=== PATIENT | female | born 1995 ===

== ENCOUNTER 2025-01-05 11:17 | Inpatient (IN) | payer OTHER ==
[~2025-01-05] VITALS: Wt 126.4 kg
[2025-01-05] MEDS ORDERED: METF500C PO (16:51)
[2025-01-05] MEDS ORDERED: LITH300C PO (16:52)
[2025-01-05] MEDS ORDERED: PRENATAL TABLE1 EAC2 PO (16:53)
[2025-01-05] MEDS ORDERED: Polyethylene Glycol 3350 17 gm PO PRN (16:55)
[2025-01-05] MEDS ORDERED: Ondansetron 4 MG SoluTab MM PRN (16:55)
[2025-01-05] MEDS ORDERED: Inderal 20 mg T20 MG PO (16:55)
[2025-01-05] MEDS ORDERED: LORazepam 2 MG/ML 1ML Injection IM PRN (16:55)
[2025-01-05] MEDS ORDERED: PROP60 PO ×2 (16:56→16:57)
[2025-01-05] MEDS ORDERED: QUET100 PO (16:58)
[2025-01-05] MEDS ORDERED: QUET300 PO ×2 (17:00→17:06)
[2025-01-05] MEDS ORDERED: Haloperidol Lactate Inj. 5 MG/ML Injection IM PRN (17:00)
[2025-01-05] MEDS ORDERED: DiphenhydrAMINE HCl 50 MG/ML 1ML Vial IM PRN (17:00)
[2025-01-05] MEDS ORDERED: Aluminum Hydroxide 320MG/5ML 473 ML PO PRN (17:00)
--- NOTE | 2025-01-05 18:09 | NUR ---
SHIFT SUMMARY NO ACUTE EVENTS. PT ARRIVED ON UNIT, PLEASANT AND COOPERATIVE. STATED THAT SHE COULD "FEEL" HERSELF BECOMING "MANIC" AND EXPERIENCING "DEPRESSIVE" SYMPTOMS AND BELIEVED SHE WAS GOING TO HAVE A MIXED EPISODE. PT STATES SHE HAS BEEN BINGE EATING, IMPULSIVE, WHILE ALSO EXPERIENCING OVERSLEEPING, INTERMITTENT, FLEETING SUICIDAL IDEATION IN THE PAST MONTH (NOT IN THE PAST 48 HOURS PER PT). AT THIS TIME DENIES SI, HI, AVTH. IN DAY ROOM INTERACTING W/ PEERS AT THIS TIME
[2025-01-05 19:51] VITALS: BP 135/85
--- NOTE | 2025-01-06 04:17 | NUR ---
SHIFT SUMMARY: PT A/O X4. PLEASANT AND COOPERATIVE. IN GROUP ROOM THE START OF SHIFT INTERACTING WITH OTHERS. PT DENIES SI, HI AND AVH. DOES STATE SHE IS DEPRESSED AND OVERWHELMED WITH HER FEELINGS. PT DID NOT GO INTO STRESSORS AT THIS TIME, BECAUSE SHE THOUGHT SHE WOULD CRY. FEELS THAT SHE MAY BE INPULSIVE INTO HER FEELINGS THAT SHE COULD HAVE HARMED HERSELF. PT STATES SHE JUST GOT HERE AND FEELS BETTER ALREADY. MED COMPLIANT. PT HAD SNACK AND RETURNED BACK TO THE GROUP ROOM WITH OTHERS AFTERWARD UNTIL BED TIME. PT STATES THAT SHE TAKES SEROQUEL INSTEAD OF TRAZODONE, BUT WILL TRY IT TONIGHT AND WILL TALK TO THE DR IN THE MORNING ON HER WISHES TO CHANGE MED. PT SLEPT THROUGH THE NIGHT. PT SNORES LOUDLY AND DEEPLY. WILL CONTINUE TO MONITOR Q 15 MINS FOR SAFETY AND WELLNESS.
[2025-01-06] MEDS ORDERED: MetFORMIN HCl 500 mg PO SCH (08:00)
[2025-01-06 08:25] LABS: BASOPHILS ABSOLUTE AUTO 0.04 K/mm3 (0.00-0.23); BASOPHILS PERCENT AUTO 1 % (0-2); EOSINOPHILS ABSOLUTE AUTO 0.17 K/mm3 (0.00-0.68); EOSINOPHILS PERCENT AUTO 2 % (0-6); Hematocrit 38.8 % (33.0-51.0); Hemoglobin 13.2 g/dL (11.5-16.0); IMMATURE GRAN ABSOLUTE AUTO 0.03 K/mm3 (0.00-0.10); IMMATURE GRAN PERCENT AUTO 0 % (0-1); LYMPHOCYTES ABSOLUTE AUTO 3.01 K/mm3 (0.84-5.20); LYMPHOCYTES PERCENT AUTO 34 % (21-46); MONOCYTES ABSOLUTE AUTO 0.55 K/mm3 (0.16-1.47); MONOCYTES PERCENT AUTO 6 % (4-13); Mean Corpuscular HGB Conc 34.0 g/dL (31.5-36.5); Mean Corpuscular Volume 92 fL (80-100); NEUTROPHILS ABSOLUTE AUTO 5.05 K/mm3 (1.96-9.15); NEUTROPHILS PERCENT AUTO 57 % (41-73); NRBC ABSOLUTE 0.00 K/mm3 (0.00-0.02); NRBC Auto 0.0 /100 WBC (0.0-0.2); Platelet Count 367 K/mm3 (150-400); RDW Coefficient Variation 12.9 % (11.7-14.2); RDW Standard Deviation 42.9 fL (35.1-46.3)
[2025-01-06 08:58] LABS: Lithium 0.68 mmol/L (0.60-1.20)
[2025-01-06 09:00] VITALS: BP 130/86
[2025-01-06] MEDS ORDERED: Multivitamins 1 Tab PO SCH (09:00)
[2025-01-06] MEDS ORDERED: Prenatal Vit/FE Fumarate/FA 1 Tab PO SCH (09:00)
[2025-01-06 09:06] LABS: Alanine Aminotransfer (ALT/SGP 30 U/L (12-78); Albumin, Blood 3.6 g/dL (3.4-5.0); Albumin/Globulin Ratio 0.9 (0.8-1.8); Anion Gap 8 mmol/L (3-11); Aspartate Aminotrans (AST/SGOT 14 U/L (12-37); Bilirubin, Total 0.3 mg/dL (0.1-1.0); Blood Urea Nitrogen 10 mg/dL (8-24); CHOL/HDL RATIO 4.6; CO2, Blood 25 mmol/L (21-32); Calcium, Blood 8.9 mg/dL (8.5-10.1); Chloride, Blood 105 mmol/L (98-108); Cholesterol 232 mg/dL (50-200); Creatinine, Blood 0.86 mg/dL (0.40-1.00); Globulin, Blood 4.1 g/dL (2.2-4.0); Glucose, Blood 104 mg/dL (70-99); HDL Cholesterol 50 mg/dL (>39); LDL/HDL RATIO 3.0; Low Density Lipoprotein Chol 150 mg/dL (0-110); Potassium, Blood 4.1 mmol/L (3.5-5.5); Sodium, Blood 134 mmol/L (136-145); Thyroid Stimulating Hormone 1.050 uIU/mL (0.360-4.800); Total Protein, Blood 7.7 g/dL (6.4-8.2); Triglycerides 162 mg/dL (30-140); Very Low Density Lipoprot Chol 32 mg/dL (6-28)
--- NOTE | 2025-01-06 12:29 | NUR ---
MASTER TREATMENT PLAN MASTER TREATMENT PLAN REVIEWED W/ PT AND PT "SIGNED" ELECTRONICALLY
--- NOTE | 2025-01-06 12:52 | NUR ---
PATIENT APPROACHES NURSING DESK AFTER LUNCH REQUESTING TO SPEAK WITH A THERAPIST ABOUT HER EATING DISORDER. PATIENT IS TEARY AND APPEARS DISTRAUGHT. SHE STATES THAT SHE DIDN'T GET WHAT SHE ORDERED ON HER MENU AND THIS TRIGGERED HER TO REMEMBER THE TIME SHE SPENT IN TREATMENT FOR HER EATING DISORDER, AND SHE WAS NOT GIVEN A CHOICE OF ANYTHING. PATIENT STATES THAT SHE IS A BINGE EATER AT THIS TIME, BUT IN THE PAST WAS BINGING AND PURGING. SHE STATES "I THOUGHT I WAS OVER THIS, BUT CLEARLY I AM NOT". A DIETARY CONSULT WAS PLACED IN THE COMPUTER AND THE PATIENT IS AWARE THAT WE DO NOT HAVE A EATING DISORDER THERAPIST ON SITE, BUT THE NURSES ARE AVAILABLE ANYTIME TO HELP HER WORK THROUGH HER FEELINGS.
--- NOTE | 2025-01-06 16:33 | NUR ---
SHIFT SUMMARY: PLEASE ALSO SEE EARLIER NURSING NOTE ENTERED THIS SHIFT REGARDING AN EATING DISORDER. PATIENT WAS TEARY THIS AFTERNOON WHEN CONCERNS SURFACED ABOUT HER PAST EATING DISORDER, BUT OVERALL SHE HAD A GOOD DAY, ACTIVELY JOINING HER PEERS IN THE DAY AREA, WATCHING TV AND VISITING. PATIENT TAKES MEDICATIONS PRESCRIBED. DENIES SIDE EFFECTS. PATIENT AFFECT APPEARS HAPPY MOST OF THE TIME. SHE DENIES THAT SHE WANTS TO END HER LIFE BUT DOES HAVE OCCASIONAL FLEETING THOUGHTS OF MAYBE NOT WANTING TO BE HERE. SHE DENIES HALLUCINATIONS. PATIENT EATS HER MEALS BUT IS TRIGGERED BY FOOD TRAYS THAT DO NOT REFLECT WHAT SHE REQUESTED. PATIENT IS NOW RESTING IN HER ROOM WITH NO FURTHER CONCERNS AT THIS TIME.
[2025-01-06 19:23] VITALS: BP 133/84
--- NOTE | 2025-01-07 04:56 | NUR ---
SHIFT SUMMARY: PT A/O X4. PLEASANT AND COOPERATIVE. PT IN DINING ROOM AT THE BEGINNING OF THE SHIFT HAVING DINNER. NO FOOD TRIGGERS WITH MEAL TONIGHT. DENIES SI, HI, AND AVTH, PT INTERVIEW TODAY WITH HAPPY MOOD AND DISCUSSSED HER FOOD TRIGGERS. PT WAS IN A FOOD/NUTRITION THERAPY LAST OCTOBER SHE SAID. PT PARTICIPATES IN GROUP, SNACK AND GROUP ROOM WITH PEERS AND IS LAUGHING. COMPLAINED OF CONSTIPATION AND OFFERED MIRALAX. SHE SAID THAT THE REASON SHE CAN'T HAVE A BM IS THAT SHE HAS A ROOMMATE AND THE RESTROOM IS UNCOMFORTABLE. OFFERED HER A RESTROOM OF MORE PRIVACY AND PT HAD A BM. SHE SAID SHE FELT BETTER IMMEDIATELY. PT HAS SLEPT THROUGH THE NIGHT SINCE GOING TO BED AT 2200. WILL CONTINUE TO MONITOR.
[2025-01-07 09:02] VITALS: BP 113/63
--- NOTE | 2025-01-07 17:18 | NUR ---
SHIFT SUMMARY PT AxOx4. PLEASANT AND COOPERATIVE WITH CARE. PT DENIES SI/HI AND AVTH THIS SHIFT AT AM ASSESSMENT. SHE REPORTED HER MOOD WAS "GOOD, BUT ANXIOUS." SHE REQUESTED TO SPEAK WITH A THERAPIST REGARDING THE CAUSE OF HER ANXIETY. PT WAS FOUND FOLLOWING HER TREATMENT PLAN THIS SHIFT INCLUDING TAKING MEDICATIONS PRESCRIBED, ATTENDING ALL [facility] THERAPY GROUPS AND MINGLING APPROPRIATELY WITH STAFF/PEERS. PROVIDER ORDERED MEDICATION CHANGES TO BE STARTED TONIGHT. CURRENT PLAN IS ESTIMATED FOR DC THIS TUESDAY OR TUESDAY, DEPENDING ON PROGRESS. PT AGREEABLE TO PLAN. SHE IS CURRENTLY IN THE GROUP ROOM WATCHING TV WITH PEERS. DENIED ANY NEEDS AT THIS TIME.
[2025-01-07 20:15] VITALS: BP 132/94
--- NOTE | 2025-01-08 05:30 | NUR ---
SHIFT SUMMARY: Patient is Alert and oriented times four. She gets along with both staff and her peers in the milieu. Participates in all activities. She was given one vistaril at 2014 for anxiety 10/18 which she said brought it down to a -08/20. Given Miralax this morning for c/o feeling constipated. Will continue close observation every 15 minutes for safety and comfort.
[2025-01-08 07:14] VITALS: BP 114/89
--- NOTE | 2025-01-08 18:12 | NUR ---
SHIFT SUMMARY PT AxOx4. PLEASANT AND COOPERATIVE WITH CARE. SHE DENIED SI/HI AND AVTH THIS SHIFT. SHE HAS BEEN FOLLOWING THE TREATMENT PLAN INCLUDING TAKING MEDICATIONS PRESCRIBED, ATTENDING [facility] THERAPY GROUPS WELL MINGLING APPROPRIATELY WITH PEERS/STAFF. THE PATIENT REPORTS "FEELING BETTER" TODAY AND DENIES ANY MEDICATION SIDE EFFECTS. PT HAD A VISIT FROM RESIDENT CARE DIRECTOR TODAY. SHE IS CURRENTLY SITTING IN DINING ROOM EATING DINNER. CURRENT PLAN IS FOR HER TO DC TUESDAY OR TUESDAY OF THIS WEEK. LABS SCHEDULED TOMORROW AM. PT AGREEABLE TO PLAN.
[2025-01-08 19:34] VITALS: BP 133/90
--- NOTE | 2025-01-09 05:08 | NUR ---
patient is A&OX4 and pleasant and cooperative with both staff as well as peers. Karen spent most of her evening in the milieu watching a movie and participating in snack time. Karen did wake around 2200 and complained about a 5-6/10 headache which resolved with advil. denies SI,HI and AVTH during evening assessment. Has been sleeping since approximately 2230. Will continue close observation every 15 minutes for comfort and safety
[2025-01-09 08:54] VITALS: BP 130/89
[2025-01-09 12:14] LABS: Lithium 0.69 mmol/L (0.60-1.20)
--- NOTE | 2025-01-09 14:08 | NUR ---
IMPORTANT DISCHARGE INFORMATION PATIENT TO BE DISCHARGED 01/10/25. HER TRANSPORTATION WILL BE HERE AROUND 2:30PM VIA [facility] . PCP FOLLOW UP WITH DR. CARCAMO IS ON 01/23/25 AT 1:45PM AT [facility] . FOLLOW UP MENTAL HEALTH WITH DR. PRASAD AT [facility] ON 01/25/25 AT 2:30PM. PHARMACY: [facility] [phone] RESOURSES: RENT AND UTILITES SUPPORT THROUGH [facility] AND [facility].
--- NOTE | 2025-01-09 17:17 | NUR ---
SHIFT SUMMARY PT DENIES SI, HI, AVTH. ENDORSED FEELIN OVERWHELMED D/T STRESS ABOUT NEW WORK, MISSING WORK, AND RENT. STATED SHE FEELS "BETTER" AFTER TALKING W/ JUAN GAMBINO; THIS RN TALKED TO [facility]SH AND RESOURCES WERE COMPILED FOR PT, WHICH THE PT WAS THANKFUL FOR. PT PLEASANT AND COOPERATIVE, INTERACTING W/ PEERS, AND HAS BEEN TO GROUPS, MEAL TIMES, AND IN DAYROOM.
[2025-01-09 20:23] VITALS: BP 129/78
--- NOTE | 2025-01-10 04:17 | NUR ---
SHIFT SUMMARY: PATIENT WAS IN THE DINING AREA FINISHING HER DINNER AT THE BEGINNING OF THE SHIFT. SHE THEN WENT TO THE DAY ROOM AREA, WHERE SHE WATCHED TELEVISION FOR A TIME. SHE CAME OUT TO USE THE RESTROOM, AND WAS ABLE TO ANSWER MANAGER FINANCE QUESTIONS IN A LOGICAL AND LINEAR MANNER. SHE STATED THAT SHE IS "EXCITED TO BE DISCHARGING" AND "I FEEL LIKE I HAVE MY LIFE BACK TOGETHER". SHE DENIED SUICIDAL IDEATION, THOUGHTS OF SELF HARMING OR A/V/T HALLUCINATIONS. SHE PARTICIPATED IN SNACK AND WRAP UP GROUP AT 2030. SHE STAYED UP FOR A TIME, WATCHING TELEVISION AND TALKING WITH STAFF AND PEERS. SHE WAS PLEASANT AND COOPERATIVE WITH CARES, AND COMPLIANT WITH EVENING MEDICATIONS. SHE THEN WENT TO HER ROOM WHERE SHE WAS NOTED TO BE IN BED RESTING WITH EYES CLOSED AND RESPIRATIONS CONFIRMED FOR THE REMAINDER OF THE SHIFT. CONTINUING TO MONITOR FOR SAFETY WITH Q15 MINUTE CHECKS.
[2025-01-10 08:50] VITALS: BP 121/56
[2025-01-10] MEDS ORDERED: OLAN10 PO (10:54)
--- NOTE | 2025-01-10 14:48 | NUR ---
SHIFT SUMMARY NO ACUTE EVENTS TODAY. PT IS "HAPPY" ABOUT DISCHARGE, BUT STATES SHE FEELS "CALM", WHICH IS "GOOD" FOR HER. STATING THAT SHE FEELS MORE "STABLE". PT INTERACTING WELL W/ PEERS/STAFF, WENT TO GROUPS, AND MEAL TIMES. DISCHARGED AT 1443 W/ BELONGINGS, DISCHARGE FORMS SIGNED.
== END 2025-01-10 14:43 | disposition home or self-care (01) | DRG 885 ==
LOC: BHU 16:16 → UNDOADMIN 16:16 → BHU 16:36
PROVIDERS: ADMIT Student in an Organized Health Care Education/Training Program
DX: F31.75 Bipolar disorder, in partial remission, most recent episode depressed (principal); R45.851 Suicidal ideations; F50.819 Binge eating disorder, unspecified; Z88.2 Allergy status to sulfonamides; Z88.8 Allergy status to other drugs, medicaments and biological substances; Z79.84 Long term (current) use of oral hypoglycemic drugs; Z79.899 Other long term (current) drug therapy
CPT/HCPCS: 36415; 80053; 80061; 80178; 83036; 84443; 84703; 85025; A9270